=== PATIENT | female | born 1975 | race Two or more races ===

== ENCOUNTER 2025-05-17 23:05 | Emergency (ER) | payer OTHER ==
[~2025-05-17] VITALS: Ht 157.5 cm; Wt 108.9 kg
[2025-05-17] MEDS ORDERED: SYNTHROID100 MCG (23:11)
[2025-05-18] MEDS ORDERED: 0.9 % SODIUM CHLORIDE 1,000 ML IV STA (00:33)
[2025-05-18 00:58] LABS: BASO % 0.3 % (0.1-1.2); EOS # 0.33 (0.04-0.54); EOS % 3.7 % (0.7-7.0); LYMPH # 2.38 (1.18-3.74); LYMPH % 26.8 % (19.3-53.1); MEAN PLATELET VOLUME 11.40 fl (9.4-12.4); MONO # 0.60 (0.24-0.82); MONO % 6.8 % (4.7-12.5); NEUT # 5.49 (1.56-6.13); NEUT % 61.9 % (34.0-71.1); RED CELL DISTRIBUTION WIDTH 13.7 % (11.6-14.4)
[2025-05-18 01:36] LABS: INR 0.94
[2025-05-18 03:05] LABS: ALT/SGPT 21.0 U/L (12-78); AST/SGOT 13.0 U/L (15-37); BILIRUBIN TOTAL 0.35 mg/dL (0.3-1.2); BUN CREA RATIO 12.0 (7.0-25.0); CREATININE SERUM 1.24 mg/dL (0.55-1.02); GFR 45.97; GLOBULINA 3.5 G/DL (2.4-3.5); GLUCOSE FASTING 103.0 mg/dL (65-100); OSMOLALITY SERUM 292.0 MOSM/KG (275-295); TSH 4.65 uIU/mL (0.358-3.74)
[2025-05-18] MEDS ORDERED: KETOROLAC TROMETHAMINE 60 MG VIAL IM STA (03:44)
== END 2025-05-18 03:51 | disposition home or self-care (01) ==
LOC: ER 23:05
DX: N93.8 Other specified abnormal uterine and vaginal bleeding (principal); D25.9 Leiomyoma of uterus, unspecified; N83.292 Other ovarian cyst, left side